=== PATIENT | male | born 1975 | race Two or more races ===

== ENCOUNTER 2020-06-13 14:03 | Emergency (ER) | payer OTHER ==
[~2020-06-13] VITALS: Ht 172.7 cm; Wt 107.1 kg
[2020-06-13 14:18] VITALS: BP 119/76
[2020-06-13 14:58] LABS: BASOPHILS % (AUTO) 1 % (0-1); EOSINOPHILS % (AUTO) 0 % (1-7); LYMPHOCYTES % (AUTO) 28 % (22-44); MEAN CORPUSCULAR HEMOGLOBIN 30.4 pg (27.5-34.5); MEAN CORPUSCULAR HGB CONC 33.9 g/dL (33.2-36.2); MEAN PLATELET VOLUME 7.7 fL (7.4-10.4); MONOCYTES % (AUTO) 6 % (2-9); NEUTROPHILS % (AUTO) 65 % (42-75); PLATELET COUNT 253 x10^3/uL (130-400); RED BLOOD COUNT 4.98 x10^6/uL (4.38-5.82)
[2020-06-13 15:05] LABS: ALBUMIN 3.8 g/dL (3.4-5.0); ANION GAP 3 mmol/L (5-15); CALCIUM 8.6 mg/dL (8.5-10.1); CHLORIDE 101 mmol/L (98-107); CREATININE 0.93 mg/dL (0.7-1.3)
[2020-06-13 15:10] LABS: MD NO
--- NOTE | 2020-06-13 18:18 | NUR ---
[employer]: NIL X2
--- NOTE | 2020-06-13 18:38 | NUR ---
signed out ama form
== END 2020-06-13 18:39 | disposition left against medical advice (07) ==
LOC: ED 18:33
DX: R05 Cough (principal); R07.89 Other chest pain
CPT/HCPCS: 36415; 71045; 80048; 82040; 85025; 93005; 99285